=== PATIENT | female | born 1940 | race Two or more races ===

== ENCOUNTER 2021-04-22 03:46 | Inpatient (IN) | payer MEDICARE, MEDICAID ==
[~2021-04-22] VITALS: Ht 165.1 cm; Wt 66.2 kg
[2021-04-22 03:59] LABS: ABG A-A DIFF O2 603.1 mmHg (10-20.0); ABG CARBOXYHEMOGLOBIN 0.3 % (0.0-1.5); ABG HCO3 32.9 mmol/L (22.0-26.0); ABG METHEMOGLOBIN 0.3 % (0.0-1.5); ABG OXYGEN CONTENT 15.3 mL/dL (15.0-23.0); ABG OXYGEN SATURATION 90.3 % (95.0-98.0); ABG OXYHEMOGLOBIN 89.8 % (94.0-100.0); ABG PCO2 55 mmHg (35-45); ABG PH 7.424 (7.35-7.450); ABG TOTAL HEMOGLOBIN 12.1 G/dL (12.0-18.0); PO2, ARTERIAL BG 56.1 mmHg (75.0-83.0); SOURCE, BLOOD GAS ARTERIAL; TEMPERATURE, FAHRENHEIT, BG 97.6 FAHREN (96.0-98.6)
[2021-04-22 04:00] LABS: O2 DEVICE,BLOOD GAS NONREBREATHER (ROOM AIR); SITE, BLOOD GAS LFT RADIAL
[2021-04-22] MEDS ORDERED: ONDANSETRON HCL 4 MG/2 ML VIAL IVP ONE (04:00)
[2021-04-22 04:20] LABS: GLUCOSE,POINT OF CARE 170 MG/DL (70-110)
[2021-04-22] MEDS ORDERED: METO25 PO (04:24)
[2021-04-22] MEDS ORDERED: METO-296 PO (04:24)
[2021-04-22] MEDS ORDERED: MECL25TA39 PO (04:24)
[2021-04-22] MEDS ORDERED: VALS160T2 PO (04:24)
[2021-04-22] MEDS ORDERED: INSREG SQ (04:24)
[2021-04-22] MEDS ORDERED: TRAM50TA4 PO (04:24)
[2021-04-22] MEDS ORDERED: AZITHROMYCIN 500 MG/NS 250 ML IV ONE (04:30)
[2021-04-22] MEDS ORDERED: PIPERACILLIN/TAZO 3.375 GM/D5W 50 ML IV ONE (04:30)
[2021-04-22] MEDS ORDERED: VANCOMYCIN HCL 1 GM/D5% WATER 200 ML IV ONE (04:30)
[2021-04-22] MEDS ORDERED: SODIUM CHLORIDE 0.9% 500 ML IV ONE (04:30)
[2021-04-22 04:54] LABS: BASOPHILS % (AUTO) 0.3 % (0.0-2.0); EOSINOPHILS % (AUTO) 0.8 % (1.0-6.0); HEMATOCRIT 35.3 % (36-46); HEMOGLOBIN 11.7 g/dL (12.0-16.0); LYMPHOCYTES # (AUTO) 0.2 K/uL (1.0-4.8); LYMPHOCYTES % (AUTO) 3.1 % (22.0-44.0); MEAN CORPUSCULAR HEMOGLOBIN 29.2 pg (26.0-34.0); MEAN CORPUSCULAR VOLUME 88 fL (80-100); MONOCYTES # (AUTO) 0.3 K/uL (0.1-1.0); MONOCYTES % (AUTO) 3.2 % (2.0-9.0); NEUTROPHILS # (AUTO) 7.3 K/uL (1.8-7.7); PLATELET COUNT (AUTO) 290 K/uL (150-450); RED CELL DISTRIBUTION WIDTH 18.8 % (11.5-14.5)
[2021-04-22 04:56] LABS: NEUTROPHILS % (AUTO) 92.6 % (40.0-70.0)
[2021-04-22 05:02] LABS: COVID AG,FIA SOURCE NASOPHARYNGEAL
[2021-04-22 05:03] LABS: PROTHROMBIN TIME 10.9 SEC (9.4-11.6)
[2021-04-22 05:12] LABS: APPEARANCE,URINE CLEAR (CLEAR); BILIRUBIN,URINE NEGATIVE (NEGATIVE); GLUCOSE, URINE (UA) NEGATIVE (NEGATIVE); KETONES,URINE NEGATIVE (NEGATIVE); LEUKOCYTE ESTERASE ,URINE SMALL (NEGATIVE); NITRATE,URINE NEGATIVE (NEGATIVE); OCCULT BLOOD,URINE NEGATIVE (NEGATIVE); PH,URINE 6.5 (5.0-8.0); PROTEIN,URINE NEGATIVE (NEGATIVE)
[2021-04-22 05:16] LABS: INFLUENZA TYPE A NEGATIVE FOR TYPE A (NEGATIVE); INFLUENZA TYPE B NEGATIVE FOR TYPE B (NEGATIVE)
[2021-04-22 05:24] LABS: BACTERIA,URINE Few /HPF (None Seen); RBC,URINE 0-2 /HPF (0-2); SQUAMOUS EPITHELIAL CELL,UR Rare /LPF (None Seen)
[2021-04-22 05:24] LABS: ANION GAP 13 mmol/L (8-16); CARBON DIOXIDE 30 mmol/L (22-29); CHLORIDE 101 mmol/L (98-107); CREATININE 0.66 mg/dL (0.60-1.30); GLUCOSE,RANDOM 177 mg/dL (70-110); POTASSIUM 3.8 mmol/L (3.5-5.1); SODIUM SERUM 144 mmol/L (136-145); UREA NITROGEN, BLOOD 58 mg/dL (7-18)
[2021-04-22 05:32] LABS: ALANINE AMINOTRANSFERASE 24 U/L (12-78); ALBUMIN 2.9 g/dL (3.4-5.0); ALKALINE PHOSPHATASE 106 U/L (46-116); ASPARTATE AMINOTRANSFERASE 39 U/L (15-37); B-TYPE NATRIURETIC PEPTIDE 272 pg/mL (0-100); BILIRUBIN,TOTAL 0.3 mg/dL (0.1-1.0); CALCIUM, TOTAL 11.5 mg/dL (8.8-10.5); CREATINE KINASE, TOTAL ONLY 56 U/L (26-192); TOTAL PROTEIN, SERUM 6.7 g/dL (6.4-8.2)
[2021-04-22 05:33] LABS: GLOMERULAR FILTR. RATE CALC > 60 mL/min (>60)
[2021-04-22] MEDS ORDERED: ASPIRIN 325 MG TABLET GT ONE (05:45)
[2021-04-22] MEDS ORDERED: ONDANSETRON HCL 4 MG/2 ML VIAL IVP PRN ×2 (06:15→10:00)
[2021-04-22] MEDS ORDERED: ACETAMINOPHEN 325 MG TABLET GT PRN ×2 (06:15→10:00)
[2021-04-22] MEDS ORDERED: 0.9% SODIUM CHLORIDE 10 ML SYRINGE IVP PRN ×2 (06:15→10:00)
[2021-04-22] MEDS ORDERED: HEPARIN SODIUM 25000 UNITS/D5W 250 ML IV PRN ×2 (06:45→19:15)
[2021-04-22] MEDS ORDERED: HEPARIN SODIUM,PORCINE 5,000 UNITS/ML VIAL IVP PRN ×4 (06:45→19:15)
[2021-04-22] MEDS ORDERED: HEPARIN SODIUM,PORCINE 5,000 UNITS/ML VIAL IVP ONE ×2 (06:45→19:15)
[2021-04-22] MEDS: ASPIRIN 81 MG CHEWABLE TABLET PO SCH (09:55)
[2021-04-22] MEDS ORDERED: BISACODYL 10 MG RECTAL RECTAL SUPPOSITORY PR PRN (10:00)
[2021-04-22] MEDS ORDERED: IPRATROPIUM BROMIDE 0.5 MG/2.5 ML NEB SOLUTION NEB PRN (10:00)
[2021-04-22] MEDS ORDERED: DEXTROSE 50%-WATER 25 GM/50 ML SYRINGE IVP PRN (10:00)
[2021-04-22] MEDS ORDERED: ALBUTEROL SULFATE 2.5 MG/0.5 ML NEB SOLUTION NEB PRN (10:00)
[2021-04-22] MEDS ORDERED: DOCUSATE SODIUM 100 MG/10 ML LIQUID UDCUP GT PRN (10:00)
[2021-04-22 10:39] VITALS: BP 107/60
[2021-04-22] MEDS: SODIUM CHLORIDE 0.9% 1,000 ML IV SCH (11:28)
[2021-04-22] MEDS: PIPERACILLIN/TAZO 3.375 GM/D5W 50 ML IV SCH ×3 (11:29→23:22)
[2021-04-22 13:54] LABS: GLUCOMETER DEV NAME(LOC) 5S.2B; GLUCOSE,POINT OF CARE 94 MG/DL (70-110)
[2021-04-22] MEDS: IPRATROPIUM BROMIDE 0.5 MG/2.5 ML NEB SOLUTION NEB SCH ×2 (14:00→20:27)
[2021-04-22] MEDS: ALBUTEROL SULFATE 2.5 MG/0.5 ML NEB SOLUTION NEB SCH ×2 (14:00→20:27)
[2021-04-22 14:49] VITALS: BP 139/51
[2021-04-22 19:11] VITALS: BP 154/69
[2021-04-22 23:37] VITALS: BP 120/71
[2021-04-23] VITALS (10 sets, daily range): BP systolic 110–153; BP diastolic 60–80
[2021-04-23 00:19] LABS: GLUCOMETER DEV NAME(LOC) 5N.1C; GLUCOSE,POINT OF CARE 113 MG/DL (70-110)
[2021-04-23] MEDS: SODIUM CHLORIDE 0.9% 1,000 ML IV SCH (01:30)
[2021-04-23] MEDS: ALBUTEROL SULFATE 2.5 MG/0.5 ML NEB SOLUTION NEB SCH ×4 (02:18→20:26)
[2021-04-23] MEDS: IPRATROPIUM BROMIDE 0.5 MG/2.5 ML NEB SOLUTION NEB SCH ×4 (02:18→20:26)
[2021-04-23] MEDS: PIPERACILLIN/TAZO 3.375 GM/D5W 50 ML IV SCH ×2 (05:52→12:33)
[2021-04-23 06:41] LABS: HEMATOCRIT 29.7 % (36-46); HEMOGLOBIN 9.6 g/dL (12.0-16.0); MEAN CORPUSCULAR HEMOGLOBIN 28.8 pg (26.0-34.0); MEAN CORPUSCULAR HGB CONC 32.3 G/dL (31.0-37.0); MEAN CORPUSCULAR VOLUME 89 fL (80-100); PLATELET COUNT (AUTO) 238 K/uL (150-450); RED BLOOD CELL COUNT(AUTO) 3.34 MIL/uL (4.00-5.20); RED CELL DISTRIBUTION WIDTH 18.6 % (11.5-14.5)
[2021-04-23 07:12] LABS: ALANINE AMINOTRANSFERASE 17 U/L (12-78); ALBUMIN 2.2 g/dL (3.4-5.0); ALKALINE PHOSPHATASE 68 U/L (46-116); ANION GAP 10 mmol/L (8-16); ASPARTATE AMINOTRANSFERASE 26 U/L (15-37); BILIRUBIN,TOTAL 0.4 mg/dL (0.1-1.0); CALCIUM, TOTAL 10.8 mg/dL (8.8-10.5); CARBON DIOXIDE 30 mmol/L (22-29); CHLORIDE 110 mmol/L (98-107); CHOL/HDL RATIO 2.6 (3.9-5.7); CHOLESTEROL 87 mg/dL (131-200); CREATININE 0.52 mg/dL (0.60-1.30); GLUCOSE,RANDOM 94 mg/dL (70-110); HDL CHOLESTEROL 33 mg/dL (40-60); LDL CHOL (CALC.) 43 mg/dL (0-130); SODIUM SERUM 150 mmol/L (136-145); TOTAL PROTEIN, SERUM 6.4 g/dL (6.4-8.2); TRIGLYCERIDES 57 mg/dL (15-150); UREA NITROGEN, BLOOD 52 mg/dL (7-18)
[2021-04-23 07:28] LABS: GLOMERULAR FILTR. RATE CALC > 60 mL/min (>60); POTASSIUM 2.7 mmol/L (3.5-5.1)
[2021-04-23] MEDS ORDERED: POTASSIUM CHLORIDE 20 MEQ ER TABLET PO PRN (08:00)
[2021-04-23] MEDS: SODIUM CHLORIDE 0.45% 1,000 ML IV SCH ×2 (08:26→22:25)
[2021-04-23] MEDS: PANTOPRAZOLE SODIUM 40 MG/VIAL IVP SCH (08:30)
[2021-04-23 08:55] LABS: BAND NEUTROPHILS % (MANUAL) 26 % (0-5); LYMPHOCYTES % (MANUAL) 7 % (22-44); MONOCYTES % (MANUAL) 1 % (2-9); SEGMENTED NEUTROPHILS % 66 % (40-70)
[2021-04-23] MEDS: POTASSIUM CHL 10 MEQ/WATER 50 ML IV PRN ×7 (09:08→17:39)
[2021-04-23 09:38] LABS: FREE T4 (FREE THYROXINE) 1.77 ng/dL (0.76-1.46); THYROID STIMULATING HORMONE 1.21 uIU/mL (0.36-3.74)
[2021-04-23 11:50] LABS: GLUCOMETER DEV NAME(LOC) 5N.1C; GLUCOSE,POINT OF CARE 96 MG/DL (70-110)
[2021-04-23 11:51] LABS: GLUCOMETER DEV NAME(LOC) 5N.1C; GLUCOSE,POINT OF CARE 103 MG/DL (70-110)
[2021-04-23 12:09] LABS: ANION GAP 11 mmol/L (8-16); CALCIUM, TOTAL 10.4 mg/dL (8.8-10.5); CARBON DIOXIDE 30 mmol/L (22-29); CHLORIDE 111 mmol/L (98-107); CREATININE 0.43 mg/dL (0.60-1.30); GLUCOSE,RANDOM 95 mg/dL (70-110); POTASSIUM 3.3 mmol/L (3.5-5.1); SODIUM SERUM 152 mmol/L (136-145); UREA NITROGEN, BLOOD 52 mg/dL (7-18)
[2021-04-23 12:15] LABS: GLOMERULAR FILTR. RATE CALC > 60 mL/min (>60)
[2021-04-23 12:29] LABS: GLUCOMETER DEV NAME(LOC) 5N.3; GLUCOSE,POINT OF CARE 84 MG/DL (70-110)
[2021-04-23] MEDS ORDERED: LORazepam 2 MG/ML VIAL IVP PRN (15:30)
[2021-04-23] MEDS ORDERED: AMIODARONE HCL 150 MG in DEXTROSE 5%-WATER 97 ML IV ONE (16:15)
[2021-04-23] MEDS ORDERED: AMIODARONE HCL 360 MG in DEXTROSE 5%-WATER 242.8 ML IV ONE (16:30)
[2021-04-23 17:11] LABS: GLUCOMETER DEV NAME(LOC) 5N.1C; GLUCOSE,POINT OF CARE 101 MG/DL (70-110)
[2021-04-23] MEDS: MEROPENEM 1 GM in SODIUM CHLORIDE 0.9% 100 ML IV SCH (18:27)
[2021-04-23] MEDS ORDERED: AMIODARONE HCL 540 MG in DEXTROSE 5%-WATER 239.2 ML IV ONE (22:30)
[2021-04-24] MEDS: MEROPENEM 1 GM in SODIUM CHLORIDE 0.9% 100 ML IV SCH ×3 (01:45→17:36)
[2021-04-24] MEDS: IPRATROPIUM BROMIDE 0.5 MG/2.5 ML NEB SOLUTION NEB SCH ×5 (02:01→20:44)
[2021-04-24] MEDS: ALBUTEROL SULFATE 2.5 MG/0.5 ML NEB SOLUTION NEB SCH ×5 (02:01→20:44)
[2021-04-24 02:39] LABS: GLUCOMETER DEV NAME(LOC) 5N.1C; GLUCOSE,POINT OF CARE 157 MG/DL (70-110)
[2021-04-24 04:20] VITALS: BP 143/78
[2021-04-24] MEDS: INSULIN LISPRO 100 UNITS/ML SQ PRN (05:46)
[2021-04-24 06:17] LABS: GLUCOMETER DEV NAME(LOC) 5N.3; GLUCOSE,POINT OF CARE 168 MG/DL (70-110)
[2021-04-24 07:00] LABS: BASOPHILS % (AUTO) 0.5 % (0.0-2.0); EOSINOPHILS % (AUTO) 0.3 % (1.0-6.0); HEMATOCRIT 25.8 % (36-46); HEMOGLOBIN 8.2 g/dL (12.0-16.0); LYMPHOCYTES # (AUTO) 0.2 K/uL (1.0-4.8); LYMPHOCYTES % (AUTO) 2.9 % (22.0-44.0); MEAN CORPUSCULAR HEMOGLOBIN 28.9 pg (26.0-34.0); MEAN CORPUSCULAR VOLUME 90 fL (80-100); MONOCYTES # (AUTO) 0.3 K/uL (0.1-1.0); MONOCYTES % (AUTO) 3.6 % (2.0-9.0); NEUTROPHILS # (AUTO) 7.9 K/uL (1.8-7.7); PLATELET COUNT (AUTO) 211 K/uL (150-450); RED BLOOD CELL COUNT(AUTO) 2.86 MIL/uL (4.00-5.20); RED CELL DISTRIBUTION WIDTH 18.6 % (11.5-14.5)
[2021-04-24 07:06] LABS: NEUTROPHILS % (AUTO) 92.7 % (40.0-70.0)
[2021-04-24 07:19] LABS: ALANINE AMINOTRANSFERASE 19 U/L (12-78); ALKALINE PHOSPHATASE 78 U/L (46-116); ANION GAP 9 mmol/L (8-16); ASPARTATE AMINOTRANSFERASE 20 U/L (15-37); BILIRUBIN,TOTAL 0.3 mg/dL (0.1-1.0); CALCIUM, TOTAL 9.9 mg/dL (8.8-10.5); CARBON DIOXIDE 28 mmol/L (22-29); CHLORIDE 112 mmol/L (98-107); CREATININE 0.58 mg/dL (0.60-1.30); GLUCOSE,RANDOM 176 mg/dL (70-110); SODIUM SERUM 149 mmol/L (136-145); TOTAL PROTEIN, SERUM 6.1 g/dL (6.4-8.2); UREA NITROGEN, BLOOD 36 mg/dL (7-18)
[2021-04-24 07:22] LABS: GLOMERULAR FILTR. RATE CALC > 60 mL/min (>60)
[2021-04-24 07:36] VITALS: BP 147/70
[2021-04-24] MEDS: ASPIRIN 81 MG CHEWABLE TABLET PO SCH (08:01)
[2021-04-24] MEDS: PANTOPRAZOLE SODIUM 40 MG/VIAL IVP SCH (08:02)
[2021-04-24] MEDS: POTASSIUM CHL 10 MEQ/WATER 50 ML IV PRN ×4 (10:06→13:33)
[2021-04-24 11:18] VITALS: BP 135/68
[2021-04-24] MEDS: SODIUM CHLORIDE 0.45% 1,000 ML IV SCH (12:27)
[2021-04-24] MEDS ORDERED: METOPROLOL SUCCINATE 25 MG ER TABLET PO ONE (14:15)
[2021-04-24 16:25] VITALS: BP 130/65
[2021-04-24] MEDS ORDERED: AMIODARONE HCL 750 MG in DEXTROSE 5%-WATER 485 ML IV SCH (16:30)
[2021-04-24 18:32] LABS: GLUCOMETER DEV NAME(LOC) 5N.3; GLUCOSE,POINT OF CARE 140 MG/DL (70-110)
[2021-04-24 18:32] LABS: GLUCOMETER DEV NAME(LOC) 5N.3; GLUCOSE,POINT OF CARE 114 MG/DL (70-110)
[2021-04-24] MEDS ORDERED: DESMOPRESSIN ACETATE 4 MCG/ML VIAL IVP ONE (19:00)
[2021-04-24 19:15] VITALS: BP 149/76
[2021-04-24] MEDS: APIXABAN 2.5 MG TABLET PO SCH (21:18)
[2021-04-25 00:38] VITALS: BP 154/98
[2021-04-25] MEDS: MEROPENEM 1 GM in SODIUM CHLORIDE 0.9% 100 ML IV SCH ×3 (02:18→18:31)
[2021-04-25] MEDS: ALBUTEROL SULFATE 2.5 MG/0.5 ML NEB SOLUTION NEB SCH ×4 (02:47→20:56)
[2021-04-25] MEDS: IPRATROPIUM BROMIDE 0.5 MG/2.5 ML NEB SOLUTION NEB SCH ×4 (02:47→20:56)
[2021-04-25 04:12] VITALS: BP 150/76
[2021-04-25 07:04] VITALS: BP 153/77
[2021-04-25 07:29] LABS: ALANINE AMINOTRANSFERASE 17 U/L (12-78); ALBUMIN 1.9 g/dL (3.4-5.0); ALKALINE PHOSPHATASE 97 U/L (46-116); ANION GAP 7 mmol/L (8-16); ASPARTATE AMINOTRANSFERASE 14 U/L (15-37); BASOPHILS % (AUTO) 0.3 % (0.0-2.0); BILIRUBIN,TOTAL 0.2 mg/dL (0.1-1.0); CALCIUM, TOTAL 9.5 mg/dL (8.8-10.5); CARBON DIOXIDE 28 mmol/L (22-29); CHLORIDE 114 mmol/L (98-107); CREATININE 0.48 mg/dL (0.60-1.30); EOSINOPHILS % (AUTO) 1.2 % (1.0-6.0); GLUCOSE,RANDOM 136 mg/dL (70-110); HEMATOCRIT 27.2 % (36-46); HEMOGLOBIN 8.6 g/dL (12.0-16.0); LYMPHOCYTES # (AUTO) 0.6 K/uL (1.0-4.8); LYMPHOCYTES % (AUTO) 5.9 % (22.0-44.0); MEAN CORPUSCULAR HEMOGLOBIN 28.9 pg (26.0-34.0); MEAN CORPUSCULAR HGB CONC 31.7 G/dL (31.0-37.0); MEAN CORPUSCULAR VOLUME 91 fL (80-100); MONOCYTES # (AUTO) 0.5 K/uL (0.1-1.0); MONOCYTES % (AUTO) 4.7 % (2.0-9.0); NEUTROPHILS # (AUTO) 8.6 K/uL (1.8-7.7); PLATELET COUNT (AUTO) 214 K/uL (150-450); POTASSIUM 3.7 mmol/L (3.5-5.1); RED BLOOD CELL COUNT(AUTO) 2.99 MIL/uL (4.00-5.20); RED CELL DISTRIBUTION WIDTH 18.7 % (11.5-14.5); SODIUM SERUM 149 mmol/L (136-145); TOTAL PROTEIN, SERUM 6.2 g/dL (6.4-8.2); UREA NITROGEN, BLOOD 20 mg/dL (7-18)
[2021-04-25 07:32] LABS: GLOMERULAR FILTR. RATE CALC > 60 mL/min (>60)
[2021-04-25 07:37] LABS: NEUTROPHILS % (AUTO) 87.9 % (40.0-70.0)
[2021-04-25 08:58] LABS: GLUCOMETER DEV NAME(LOC) 5N.1C; GLUCOSE,POINT OF CARE 137 MG/DL (70-110)
[2021-04-25 10:30] VITALS: BP 148/68
[2021-04-25] MEDS: PANTOPRAZOLE SODIUM 40 MG/VIAL IVP SCH (10:30)
[2021-04-25] MEDS: ASPIRIN 81 MG CHEWABLE TABLET PO SCH (10:30)
[2021-04-25] MEDS: APIXABAN 2.5 MG TABLET PO SCH ×2 (10:31→19:45)
[2021-04-25] MEDS: METOPROLOL SUCCINATE 25 MG ER TABLET PO SCH (10:31)
[2021-04-25] MEDS: INSULIN LISPRO 100 UNITS/ML SQ PRN (11:32)
[2021-04-25] MEDS: POTASSIUM CHLORIDE 10 MEQ in DEXTROSE 5%-WATER 1,000 ML IV SCH (11:35)
[2021-04-25 11:36] LABS: GLUCOMETER DEV NAME(LOC) 5N.1C; GLUCOSE,POINT OF CARE 148 MG/DL (70-110)
[2021-04-25 15:59] VITALS: BP 159/74
[2021-04-25 17:23] LABS: GLUCOMETER DEV NAME(LOC) 5S.1; GLUCOSE,POINT OF CARE 124 MG/DL (70-110)
[2021-04-25 19:33] VITALS: BP 152/76
[2021-04-26] VITALS (7 sets, daily range): BP systolic 142–150; BP diastolic 55–76
[2021-04-26 01:19] LABS: GLUCOMETER DEV NAME(LOC) 5N.3; GLUCOSE,POINT OF CARE 115 MG/DL (70-110)
[2021-04-26] MEDS: MEROPENEM 1 GM in SODIUM CHLORIDE 0.9% 100 ML IV SCH ×3 (01:37→17:37)
[2021-04-26] MEDS: ALBUTEROL SULFATE 2.5 MG/0.5 ML NEB SOLUTION NEB SCH ×4 (02:46→20:17)
[2021-04-26] MEDS: IPRATROPIUM BROMIDE 0.5 MG/2.5 ML NEB SOLUTION NEB SCH ×4 (02:46→20:17)
[2021-04-26 04:14] LABS: GLUCOMETER DEV NAME(LOC) 5S.1; GLUCOSE,POINT OF CARE 123 MG/DL (70-110)
[2021-04-26] MEDS: INSULIN LISPRO 100 UNITS/ML SQ PRN (06:18)
[2021-04-26 06:48] LABS: GLUCOMETER DEV NAME(LOC) 5S.2B; GLUCOSE,POINT OF CARE 152 MG/DL (70-110)
[2021-04-26 07:13] LABS: BASOPHILS % (AUTO) 0.1 % (0.0-2.0); EOSINOPHILS % (AUTO) 2.2 % (1.0-6.0); HEMATOCRIT 24.6 % (36-46); LYMPHOCYTES # (AUTO) 0.8 K/uL (1.0-4.8); LYMPHOCYTES % (AUTO) 8.7 % (22.0-44.0); MEAN CORPUSCULAR HEMOGLOBIN 28.9 pg (26.0-34.0); MEAN CORPUSCULAR HGB CONC 32.4 G/dL (31.0-37.0); MEAN CORPUSCULAR VOLUME 89 fL (80-100); MONOCYTES # (AUTO) 0.5 K/uL (0.1-1.0); NEUTROPHILS # (AUTO) 7.4 K/uL (1.8-7.7); PLATELET COUNT (AUTO) 214 K/uL (150-450); RED BLOOD CELL COUNT(AUTO) 2.76 MIL/uL (4.00-5.20); RED CELL DISTRIBUTION WIDTH 17.9 % (11.5-14.5)
[2021-04-26 07:51] LABS: ALANINE AMINOTRANSFERASE 16 U/L (12-78); ALBUMIN 1.8 g/dL (3.4-5.0); ALKALINE PHOSPHATASE 98 U/L (46-116); ANION GAP 8 mmol/L (8-16); ASPARTATE AMINOTRANSFERASE 13 U/L (15-37); BILIRUBIN,TOTAL 0.2 mg/dL (0.1-1.0); CALCIUM, TOTAL 8.6 mg/dL (8.8-10.5); CARBON DIOXIDE 26 mmol/L (22-29); CHLORIDE 107 mmol/L (98-107); CREATININE 0.35 mg/dL (0.60-1.30); GLUCOSE,RANDOM 152 mg/dL (70-110); POTASSIUM 3.7 mmol/L (3.5-5.1); SODIUM SERUM 141 mmol/L (136-145); UREA NITROGEN, BLOOD 15 mg/dL (7-18)
[2021-04-26 07:53] LABS: GLOMERULAR FILTR. RATE CALC > 60 mL/min (>60)
[2021-04-26] MEDS: APIXABAN 2.5 MG TABLET PO SCH ×2 (09:12→23:35)
[2021-04-26] MEDS: PANTOPRAZOLE SODIUM 40 MG/VIAL IVP SCH (09:12)
[2021-04-26] MEDS: METOPROLOL SUCCINATE 25 MG ER TABLET PO SCH (09:12)
[2021-04-26] MEDS: ASPIRIN 81 MG CHEWABLE TABLET PO SCH (09:12)
[2021-04-26] MEDS: CHOLECALCIFEROL (VIT D3) 5,000 [125 MCG] UNITS CAPSULE PO SCH (13:18)
[2021-04-26] MEDS: POTASSIUM CHLORIDE 10 MEQ in DEXTROSE 5%-WATER 1,000 ML IV SCH (13:23)
[2021-04-26 16:36] LABS: GLUCOMETER DEV NAME(LOC) 5S.2B; GLUCOSE,POINT OF CARE 126 MG/DL (70-110)
[2021-04-26 21:24] LABS: GLUCOMETER DEV NAME(LOC) 5S.2B; GLUCOSE,POINT OF CARE 127 MG/DL (70-110)
[2021-04-27 01:30] LABS: GLUCOMETER DEV NAME(LOC) 5S.2B; GLUCOSE,POINT OF CARE 96 MG/DL (70-110)
[2021-04-27] MEDS: ALBUTEROL SULFATE 2.5 MG/0.5 ML NEB SOLUTION NEB SCH ×4 (01:57→20:15)
[2021-04-27] MEDS: IPRATROPIUM BROMIDE 0.5 MG/2.5 ML NEB SOLUTION NEB SCH ×4 (01:57→20:15)
[2021-04-27] MEDS: MEROPENEM 1 GM in SODIUM CHLORIDE 0.9% 100 ML IV SCH ×3 (02:11→18:43)
[2021-04-27 04:39] VITALS: BP 150/80
[2021-04-27] MEDS ORDERED: LOPERAMIDE HCL 2 MG CAPSULE PO ONE (05:45)
[2021-04-27 07:07] LABS: BASOPHILS % (AUTO) 0.3 % (0.0-2.0); HEMATOCRIT 30.6 % (36-46); HEMOGLOBIN 9.9 g/dL (12.0-16.0); LYMPHOCYTES # (AUTO) 0.9 K/uL (1.0-4.8); LYMPHOCYTES % (AUTO) 9.8 % (22.0-44.0); MEAN CORPUSCULAR HEMOGLOBIN 28.6 pg (26.0-34.0); MEAN CORPUSCULAR HGB CONC 32.4 G/dL (31.0-37.0); MEAN CORPUSCULAR VOLUME 88 fL (80-100); MONOCYTES # (AUTO) 0.7 K/uL (0.1-1.0); MONOCYTES % (AUTO) 7.5 % (2.0-9.0); NEUTROPHILS # (AUTO) 7.1 K/uL (1.8-7.7); NEUTROPHILS % (AUTO) 80.4 % (40.0-70.0); PLATELET COUNT (AUTO) 268 K/uL (150-450); RED BLOOD CELL COUNT(AUTO) 3.47 MIL/uL (4.00-5.20)
[2021-04-27 08:16] VITALS: BP 166/79
[2021-04-27 08:19] LABS: ALANINE AMINOTRANSFERASE 15 U/L (12-78); ALKALINE PHOSPHATASE 97 U/L (46-116); ANION GAP 10 mmol/L (8-16); ASPARTATE AMINOTRANSFERASE 18 U/L (15-37); BILIRUBIN,TOTAL 0.3 mg/dL (0.1-1.0); CALCIUM, TOTAL 9.2 mg/dL (8.8-10.5); CARBON DIOXIDE 27 mmol/L (22-29); CHLORIDE 106 mmol/L (98-107); CREATININE 0.34 mg/dL (0.60-1.30); GLUCOSE,RANDOM 87 mg/dL (70-110); SODIUM SERUM 143 mmol/L (136-145); TOTAL PROTEIN, SERUM 6.6 g/dL (6.4-8.2); UREA NITROGEN, BLOOD 9 mg/dL (7-18)
[2021-04-27 08:35] LABS: GLUCOMETER DEV NAME(LOC) 5S.2B; GLUCOSE,POINT OF CARE 92 MG/DL (70-110)
[2021-04-27] MEDS: APIXABAN 2.5 MG TABLET PO SCH ×2 (08:44→21:48)
[2021-04-27] MEDS: ASPIRIN 81 MG CHEWABLE TABLET PO SCH (08:44)
[2021-04-27] MEDS: METOPROLOL SUCCINATE 25 MG ER TABLET PO SCH (08:46)
[2021-04-27] MEDS: PANTOPRAZOLE SODIUM 40 MG/VIAL IVP SCH (08:46)
[2021-04-27] MEDS: CHOLECALCIFEROL (VIT D3) 5,000 [125 MCG] UNITS CAPSULE PO SCH (08:46)
[2021-04-27 08:50] LABS: GLOMERULAR FILTR. RATE CALC > 60 mL/min (>60); POTASSIUM 2.9 mmol/L (3.5-5.1)
[2021-04-27] MEDS: POTASSIUM CHLORIDE 10 MEQ in DEXTROSE 5%-WATER 1,000 ML IV SCH ×2 (10:34→18:45)
[2021-04-27] MEDS: POTASSIUM CHL 10 MEQ/WATER 50 ML IV SCH ×4 (11:09→13:59)
[2021-04-27 12:11] VITALS: BP 147/94
[2021-04-27 16:41] LABS: ANION GAP 7 mmol/L (8-16); CALCIUM, TOTAL 9.1 mg/dL (8.8-10.5); CARBON DIOXIDE 27 mmol/L (22-29); CHLORIDE 106 mmol/L (98-107); CREATININE 0.34 mg/dL (0.60-1.30); GLUCOSE,RANDOM 107 mg/dL (70-110); POTASSIUM 3.9 mmol/L (3.5-5.1); SODIUM SERUM 140 mmol/L (136-145); UREA NITROGEN, BLOOD 10 mg/dL (7-18)
[2021-04-27 16:44] LABS: GLOMERULAR FILTR. RATE CALC > 60 mL/min (>60)
[2021-04-27 17:07] VITALS: BP 141/69
[2021-04-27 19:40] VITALS: BP 158/86
[2021-04-27 20:30] LABS: GLUCOMETER DEV NAME(LOC) 5S.1; GLUCOSE,POINT OF CARE 109 MG/DL (70-110)
[2021-04-27 20:31] LABS: GLUCOMETER DEV NAME(LOC) 5S.1; GLUCOSE,POINT OF CARE 130 MG/DL (70-110)
[2021-04-27 23:53] VITALS: BP 135/71
[2021-04-28 01:27] LABS: GLUCOMETER DEV NAME(LOC) 5N.1C; GLUCOSE,POINT OF CARE 138 MG/DL (70-110)
[2021-04-28] MEDS: ALBUTEROL SULFATE 2.5 MG/0.5 ML NEB SOLUTION NEB SCH ×4 (02:00→20:00)
[2021-04-28] MEDS: IPRATROPIUM BROMIDE 0.5 MG/2.5 ML NEB SOLUTION NEB SCH ×4 (02:00→20:00)
[2021-04-28] MEDS: MEROPENEM 1 GM in SODIUM CHLORIDE 0.9% 100 ML IV SCH ×3 (03:48→17:58)
[2021-04-28] MEDS ORDERED: SODIUM CHLORIDE 0.9% 250 ML IV ONE (03:50)
[2021-04-28 04:16] VITALS: BP 142/71
[2021-04-28 06:48] LABS: BASOPHILS % (AUTO) 0.8 % (0.0-2.0); EOSINOPHILS % (AUTO) 3.5 % (1.0-6.0); HEMATOCRIT 28.8 % (36-46); HEMOGLOBIN 9.4 g/dL (12.0-16.0); LYMPHOCYTES # (AUTO) 0.9 K/uL (1.0-4.8); LYMPHOCYTES % (AUTO) 11.2 % (22.0-44.0); MEAN CORPUSCULAR HEMOGLOBIN 28.7 pg (26.0-34.0); MEAN CORPUSCULAR HGB CONC 32.5 G/dL (31.0-37.0); MEAN CORPUSCULAR VOLUME 88 fL (80-100); MONOCYTES # (AUTO) 0.7 K/uL (0.1-1.0); MONOCYTES % (AUTO) 8.8 % (2.0-9.0); NEUTROPHILS % (AUTO) 75.7 % (40.0-70.0); PLATELET COUNT (AUTO) 331 K/uL (150-450); RED BLOOD CELL COUNT(AUTO) 3.27 MIL/uL (4.00-5.20); RED CELL DISTRIBUTION WIDTH 17.7 % (11.5-14.5)
[2021-04-28 07:09] LABS: ALANINE AMINOTRANSFERASE 13 U/L (12-78); ALKALINE PHOSPHATASE 99 U/L (46-116); ANION GAP 8 mmol/L (8-16); ASPARTATE AMINOTRANSFERASE 15 U/L (15-37); BILIRUBIN,TOTAL 0.2 mg/dL (0.1-1.0); CALCIUM, TOTAL 9.1 mg/dL (8.8-10.5); CARBON DIOXIDE 28 mmol/L (22-29); CHLORIDE 103 mmol/L (98-107); CREATININE 0.33 mg/dL (0.60-1.30); GLUCOSE,RANDOM 116 mg/dL (70-110); PHOSPHORUS 2.8 mg/dL (2.5-4.9); POTASSIUM 3.9 mmol/L (3.5-5.1); SODIUM SERUM 139 mmol/L (136-145); TOTAL PROTEIN, SERUM 6.4 g/dL (6.4-8.2); UREA NITROGEN, BLOOD 14 mg/dL (7-18)
[2021-04-28 07:11] LABS: GLOMERULAR FILTR. RATE CALC > 60 mL/min (>60)
[2021-04-28 07:49] VITALS: BP 142/74
[2021-04-28] MEDS: PANTOPRAZOLE SODIUM 40 MG/VIAL IVP SCH (09:12)
[2021-04-28] MEDS: CHOLECALCIFEROL (VIT D3) 5,000 [125 MCG] UNITS CAPSULE PO SCH (09:12)
[2021-04-28] MEDS: ASPIRIN 81 MG CHEWABLE TABLET PO SCH (09:12)
[2021-04-28] MEDS: THIAMINE 100 MG/ML 2 ML VIAL IVP SCH (09:13)
[2021-04-28] MEDS: APIXABAN 2.5 MG TABLET PO SCH ×2 (09:14→21:10)
[2021-04-28] MEDS: METOPROLOL SUCCINATE 25 MG ER TABLET PO SCH (09:14)
[2021-04-28 11:01] VITALS: BP 135/68
[2021-04-28] MEDS: INSULIN LISPRO 100 UNITS/ML SQ PRN (12:30)
[2021-04-28] MEDS: POTASSIUM CHLORIDE 10 MEQ in DEXTROSE 5%-WATER 1,000 ML IV SCH (12:37)
[2021-04-28 14:50] LABS: GLUCOMETER DEV NAME(LOC) 5S.1; GLUCOSE,POINT OF CARE 164 MG/DL (70-110)
[2021-04-28 14:50] LABS: GLUCOMETER DEV NAME(LOC) 5S.1; GLUCOSE,POINT OF CARE 141 MG/DL (70-110)
[2021-04-28 16:02] VITALS: BP 138/68
[2021-04-28 19:55] VITALS: BP 154/78
[2021-04-28 23:39] VITALS: BP 144/81
[2021-04-29] MEDS: INSULIN LISPRO 100 UNITS/ML SQ PRN (00:10)
[2021-04-29 01:28] LABS: GLUCOMETER DEV NAME(LOC) 5S.1; GLUCOSE,POINT OF CARE 146 MG/DL (70-110)
[2021-04-29 01:28] LABS: GLUCOMETER DEV NAME(LOC) 5N.1C; GLUCOSE,POINT OF CARE 108 MG/DL (70-110)
[2021-04-29] MEDS: ALBUTEROL SULFATE 2.5 MG/0.5 ML NEB SOLUTION NEB SCH ×3 (02:00→13:05)
[2021-04-29] MEDS: IPRATROPIUM BROMIDE 0.5 MG/2.5 ML NEB SOLUTION NEB SCH ×3 (02:00→13:05)
[2021-04-29] MEDS: MEROPENEM 1 GM in SODIUM CHLORIDE 0.9% 100 ML IV SCH ×2 (02:28→09:16)
[2021-04-29 04:30] VITALS: BP 133/71
[2021-04-29 08:08] VITALS: BP 137/68
[2021-04-29 08:10] LABS: HEMATOCRIT 32.3 % (36-46); HEMOGLOBIN 10.3 g/dL (12.0-16.0); MEAN CORPUSCULAR HEMOGLOBIN 28.6 pg (26.0-34.0); MEAN CORPUSCULAR HGB CONC 31.9 G/dL (31.0-37.0); MEAN CORPUSCULAR VOLUME 90 fL (80-100); PLATELET COUNT (AUTO) 443 K/uL (150-450); RED CELL DISTRIBUTION WIDTH 18.3 % (11.5-14.5)
[2021-04-29 08:34] LABS: ALANINE AMINOTRANSFERASE 17 U/L (12-78); ALBUMIN 2.1 g/dL (3.4-5.0); ALKALINE PHOSPHATASE 115 U/L (46-116); ANION GAP 5 mmol/L (8-16); ASPARTATE AMINOTRANSFERASE 14 U/L (15-37); BILIRUBIN,TOTAL 0.2 mg/dL (0.1-1.0); CALCIUM, TOTAL 10.1 mg/dL (8.8-10.5); CARBON DIOXIDE 29 mmol/L (22-29); CHLORIDE 105 mmol/L (98-107); CREATININE 0.39 mg/dL (0.60-1.30); GLUCOSE,RANDOM 121 mg/dL (70-110); POTASSIUM 4.4 mmol/L (3.5-5.1); SODIUM SERUM 139 mmol/L (136-145); UREA NITROGEN, BLOOD 14 mg/dL (7-18)
[2021-04-29 08:37] LABS: GLOMERULAR FILTR. RATE CALC > 60 mL/min (>60)
[2021-04-29] MEDS: PANTOPRAZOLE SODIUM 40 MG/VIAL IVP SCH (08:40)
[2021-04-29] MEDS: THIAMINE 100 MG/ML 2 ML VIAL IVP SCH (08:41)
[2021-04-29] MEDS: ASPIRIN 81 MG CHEWABLE TABLET PO SCH (08:42)
[2021-04-29] MEDS: APIXABAN 2.5 MG TABLET PO SCH (08:43)
[2021-04-29] MEDS: CHOLECALCIFEROL (VIT D3) 5,000 [125 MCG] UNITS CAPSULE PO SCH (08:43)
[2021-04-29] MEDS: METOPROLOL SUCCINATE 25 MG ER TABLET PO SCH (08:43)
[2021-04-29 09:20] LABS: BAND NEUTROPHILS % (MANUAL) 2 % (0-5); LYMPHOCYTES % (MANUAL) 12 % (22-44); METAMYELOCYTES % 1 % (0-0); MONOCYTES % (MANUAL) 8 % (2-9); MYELOCYTES % 2 % (0-0); SEGMENTED NEUTROPHILS % 75 % (40-70)
[2021-04-29 11:09] VITALS: BP 145/64
[2021-04-29 12:21] LABS: GLUCOMETER DEV NAME(LOC) 5S.1; GLUCOSE,POINT OF CARE 138 MG/DL (70-110)
[2021-04-29 13:09] LABS: COVID AG,FIA SOURCE NASAL SWAB
[2021-04-29 15:18] VITALS: BP 122/70
[2021-04-29] MEDS ORDERED: APIX2.5T PO (16:05)
[2021-04-29] MEDS ORDERED: ASPI81TA87 PO (16:06)
[2021-04-29] MEDS ORDERED: CHOL500013 PO (16:07)
[2021-04-29 19:47] LABS: GLUCOMETER DEV NAME(LOC) 5N.1C; GLUCOSE,POINT OF CARE 99 MG/DL (70-110)
== END 2021-04-29 16:30 | DRG 871 ==
LOC: EMS 03:46 → 5S 08:09 → 5N 16:30 → 5S 04-24 20:00
PROVIDERS: ADMIT Internal Medicine; ATTEND Internal Medicine
DX: A41.9 Sepsis, unspecified organism (principal); J69.0 Pneumonitis due to inhalation of food and vomit; I21.4 Non-ST elevation (NSTEMI) myocardial infarction; J15.5 Pneumonia due to Escherichia coli; E87.0 Hyperosmolality and hypernatremia; I69.354 Hemiplegia and hemiparesis following cerebral infarction affecting left non-dominant side; E83.52 Hypercalcemia; F03.90 Unspecified dementia, unspecified severity, without behavioral disturbance, psychotic disturbance, mood disturbance, and anxiety; I48.91 Unspecified atrial fibrillation; D64.9 Anemia, unspecified; E87.6 Hypokalemia; Z96.641 Presence of right artificial hip joint; Z96.651 Presence of right artificial knee joint; E11.9 Type 2 diabetes mellitus without complications; I10 Essential (primary) hypertension; Z20.822 Contact with and (suspected) exposure to COVID-19; Z66 Do not resuscitate; Z93.1 Gastrostomy status; Z79.01 Long term (current) use of anticoagulants; Z87.440 Personal history of urinary (tract) infections
CPT/HCPCS: 36600; 70450; 71045; 71250; 80048; 80053; 80061; 81001; 82306; 82330; 82550; 82805; 82962; 83036; 83735; 83880; 83935; 83970; 84100; 84132; 84145; 84300; 84439; 84443; 84484; 85025; 85610; 85730; 87040; 87070; 87077; 87081; 87186; 87205; 87804; 93005; 93306; 94640; 94667; 94668; 94799; 97110; 97163; 97166; 97530; 97535; 99291; C9113; J0282; J0456; J1644; J2185; J2405; J2543; J2597; J3370; J3411; J3480; J7030; J7040; J7050; J7060; 36415-L1; 36415-TC; J7613; U0003